=== PATIENT | female | born 1995 | race Caucasian/White ===

== ENCOUNTER 2017-11-12 20:00 | Emergency (ER) | payer SELFPAY ==
[2017-11-12] MEDS ORDERED: Adacel (T-DAP) 0.5 ML VIAL ONE (20:25)
[2017-11-12] MEDS ORDERED: Lidocaine 1% (PF) 30 ML VIAL ONE (20:28)
--- NOTE | 2017-11-12 20:29 | RAD ---
LEFT HAND THREE VIEWS: 11/12/2017 HISTORY: Hand laceration. Syncope. COMPARISON: None. FINDINGS: There is soft tissue irregularity at the base of the thumb, adjacent to the first proximal phalanx, e vidence of laceration. No radiopaque foreign body. No acute fracture or evidence of dislocation is noted. IMPRESSION: No fracture or foreign body seen. POS: [facility]
== END 2017-11-12 22:43 | disposition home or self-care (01) ==
LOC: ERS 20:00
DX: S56.022A Laceration of flexor muscle, fascia and tendon of left thumb at forearm level, initial encounter (principal); Z23 Encounter for immunization; W25.XXXA Contact with sharp glass, initial encounter
CPT/HCPCS: 12001; 90471; 90715; J2001